=== PATIENT | female | born 1995 | race Caucasian/White ===

== ENCOUNTER 2024-05-02 07:43 | Inpatient (IN) ==
--- NOTE | 2024-05-02 07:56 | History & Physical Report ---
Date of Service May 02, 2024 Assessment & Plan (1) Encounter for induction of labor: (2) Group B streptococcal infection during : Plan 28 y/o at 39 WGA presenting for induction of labor: Cervical Peterson bulb fell out earlier this morning Pitocin Intrapartum PCN AROM as indicated Epidural prn Monitor FHT, category 1 Admission and Anticipated Discharge Date Admission Date: May 02, 2024 History of Present Illness Primary Care Provider: NO PCP 28 y/o female currently at 41WGA with an JIA 04/25/24 as determined by LMP, who is here for IOL: complicated by: COVID POSTIVIE 01/04/24(SX STARTED 01/03/24) GBS Positive * Treat in Labor Had regular appointments with OB + mild contractions + movement denies Fluid loss + Vaginal bleeding External FHT and external uterine monitors used: Category 1 tracing, baseline rate 140, moderate variability, irregular contractions OB Labs: Blood Type O Positive 09/15/23 Antibody Screen NEGATIVE 09/15/23 Hemoglobin 11.8 g/dl (12.0-16.0) L 01/31/24 Hematocrit 34.8 % (37.0-47.0) L 01/31/24 Mean Corpuscular Volume 86.6 fL (80.0-100.0) 09/15/23 Platelet Count 352 K/uL (130-400) 09/15/23 Rubella IgG Antibody Immune (Immune) 09/15/23 Rapid Plasma Reagin Nonreactive (Nonreactive) 09/15/23 Hepatitis B Surface Antigen. NON-REACTIVE (NON-REACTIVE) 09/15/23 Hepatitis C Antibody (EIA) NON-REACTIVE (NON-REACTIVE) 09/15/23 HIV (1&2) Ag and Ab Confirmation NON-REACTIVE (NON-REACTIVE) 09/15/23 Glucose 1 Hour 50 gm Load 111 mg/dl (70-130) 01/31/24 Maternal Serum Alpha Fetoprotein 21.8 ng/mL 11/19/23 OB Optional Labs: Chlamydia trachomatis RNA Not Detected (NotDetected) 09/15/23 Neisseria gonorrhoeae RNA Not Detected (NotDetected) 09/15/23 Alpha Fetoprotein Triple Screen SEE NOTE 11/19/23 Labs Reviewed: Horizon 14-negative--mln cfdna-low risk--mln msafp neg, smp Allergies Allergy/AdvReac Type Severity Reaction Status Date / Time No Known Allergies Allergy Unverified 05/02/24 08:29 Home Medications Medication Instructions Recorded Confirmed Type 21-iron fu-folic acid 1 tab PO DAILY 09/08/23 05/02/24 History [ Complete] pyridoxine (vitamin B6) 1 tab PO DAILY 09/08/23 05/02/24 History doxylamine succinate 25 mg tablet 25 mg PO Q6H PRN Nausea 12/13/23 05/02/24 History (Unisom (doxylamine)) aspirin 81 mg chewable tablet 81 mg PO DAILY 01/13/24 05/02/24 History Benadryl 1 tab PO PM PRN Sleep 05/02/24 05/02/24 History Tylenol 1,000 mg PO Q8 PRN Pain 05/02/24 05/02/24 History Patient History Medical History Varicella vaccination PONV (postoperative nausea and vomiting) Anxiety no current meds, meds in the past Surgical History Hx of eye surgery left eye pterygium removal Hx of wisdom tooth extraction Family History (Updated 09/08/23 @ 08:57 by Maranda Allison) Mother Hypertension Endometriosis Grandmother (Maternal) Endometriosis Denies family history of Ovarian cancer Breast cancer Colorectal cancer Social History Smoking Status: Former smoker Second Hand Exposure: No; Do You Dip or Chew Tobacco: No; Hx Alcohol Use: Yes Hx Substance Use: No Preferred Language: Turkmen Communication Ability: Effective Cash Manager Required: No Beliefs That Will Affect Care: None marital status: marital status details: Shakeel Francis([phone]) [phone] Current Living Situation: Spouse Current Living Situation Comment: Patient lives with spouse, dog, cat-spouse changing litter. current occupational status: employed current occupation: post doc [employer] Feels Safe at Home: Yes Safety Concerns: Feels Safe At This Time OB History G1 RETAIL MARKETING COORDINATOR History last pap 12/26/21 [facility] Review of Systems denies chest pain or SOB denies fever/chills denies ARNETT/changes in vision denies dysuria denies LE pain Physical Exam Physical Exam: General: Alert and oriented. No acute distress Cardiac: Regular rate and rhythm, no murmurs appreciated Respiratory: Lungs clear to auscultation bilaterally, No increased work of breathing Abdominal: Soft, non-tender, non-distended. Bowel sounds present. Gravid uterus. Extremities: No lower extremity edema, calves non-tender bilaterally FHT/Gray: Category 1 tracing, baseline rate 140, moderate variability, irregular contractions : 4/80/-1 per attending exam Supervising Physician Co-Signing Physician Notes Resident Physician Supervision Note: I interviewed and examined the patient. Discussed with Dr. Reyes and agree with findings and plan as documented in the note. Any exceptions or clarifications are listed here: [None] Documented By: Raya Li MD, FACOG Resident Activity Tracking Resident Involvement: Resident Care Provided Care Provided: OB Delivery
[2024-05-02] MEDS ORDERED: LIDOCAINE 1% LOCAL 20 ML VIAL INFIL PRN (08:20)
[2024-05-02] MEDS ORDERED: OXYTOCIN 30 UNITS/NSS 30 UNITS/500 ML BAG IV PRN (08:20)
[2024-05-02 08:56] LABS: Hematocrit (blood only) 36.6 % (37.0-47.0); Hemoglobin 12.3 g/dl (12.0-16.0); Mean Corpuscular Hemoglobin 29.1 pg (25.0-34.0); Mean Corpuscular Hgb Conc 33.6 g/dL (32.0-36.0); Mean Corpuscular Volume 86.5 fL (80.0-100.0); Mean Platelet Volume 9.6 fL (9.4-12.4); Platelet Count 298 K/uL (130-400); RDW Coefficient of Variation 14.1 % (11.5-14.5); Red Blood Count 4.23 M/uL (4.20-5.40); White Blood Count 17.07 K/ul (4.8-10.8)
[2024-05-02] MEDS: ceFAZolin 2000MG 2,000 MG/15 ML SYR IV STA (09:03)
[2024-05-02] MEDS: PENICILLIN GK 6 MU in DEXTROSE 5% 250 ML IV STA (09:18)
[2024-05-02] MEDS: LACTATED RINGER'S 1,000 ML IV PRN (09:18)
[2024-05-02] MEDS: OXYTOCIN 30 UNITS/NSS 30 UNITS/500 ML BAG IV PRN (09:35)
[2024-05-02] MEDS ORDERED: Nursing to Pharmacy Communication SCH (12:00)
[2024-05-02] MEDS: ONDANSETRON INJ 2 MG/ML 2 ML VIAL IV PRN (12:53)
[2024-05-02] MEDS: PENICILLIN GK 3 MU in DEXTROSE 5% 100 ML IV PRN (13:30)
--- NOTE | 2024-05-02 13:54 | Anesthesiology Consultation ---
Date of Service May 02, 2024 Assessment & Plan (1) Encounter for pre-operative examination: Chart Review Chart Review: Acceptable Risk for Labor Epidural History Height/Weight Height: 5 ft 7 in Weight: 102.965 kg Allergies Allergy/AdvReac Type Severity Reaction Status Date / Time No Known Allergies Allergy Unverified 05/02/24 08:29 Medications Home Medications Medication Instructions Recorded Confirmed Last Taken 21-iron fu-folic acid 1 tab PO DAILY 09/08/23 05/02/24 05/01/24 07:30 [ Complete] pyridoxine (vitamin B6) 1 tab PO DAILY 09/08/23 05/02/24 05/01/24 07:30 doxylamine succinate 25 mg tablet 25 mg PO Q6H PRN Nausea 12/13/23 05/02/24 04/30/24 22:30 (Unisom (doxylamine)) aspirin 81 mg chewable tablet 81 mg PO DAILY 01/13/24 05/02/24 04/30/24 22:30 Benadryl 1 tab PO PM PRN Sleep 05/02/24 05/02/24 05/01/24 22:00 Tylenol 1,000 mg PO Q8 PRN Pain 05/02/24 05/02/24 05/02/24 06:00 Active Medications Generic Name Dose Route Start Last Admin Trade Name Freq PRN Reason Stop Dose Admin Oxytocin 30 units in 500 mls @ 14 mls/hr 05/02/24 08:20 05/02/24 13:00 Pitocin 30 Units/Nss IV 05/04/24 08:19 0.84 units/hr .Q24H PRN 14 mls/hr Labor Induction/Augmentation Titration Protocol 0.84 UNITS/HR Lactated Ringer's 1,000 mls @ 125 mls/hr 05/02/24 08:20 05/02/24 09:18 Lr IV 05/04/24 08:19 125 mls/hr .Q8H PRN Administration L&D Protocol Protocol Penicillin G Potassium 3 mu/ 106 mls @ 100 mls/hr 05/02/24 11:39 05/02/24 13:30 Dextrose IV 05/12/24 11:38 100 mls/hr Q4H PRN Administration GBS(+) Until Delivery Ondansetron HCl 4 mg 05/02/24 12:42 05/02/24 12:53 Ondansetron Inj 2 Mg/Ml 2 Ml Vial IV 06/01/24 12:41 4 mg Q6H PRN Administration Nausea And Vomiting Past Medical History Medical History (Updated 05/02/24 @ 13:54 by Alec Carrillo MD) Varicella vaccination Anxiety no current meds, meds in the past Past Family History Family History Mother Hypertension Endometriosis Grandmother (Maternal) Endometriosis Denies family history of Ovarian cancer Breast cancer Colorectal cancer Past Surgical History Surgical History Hx of eye surgery left eye pterygium removal Hx of wisdom tooth extraction Social History Smoking Status: Former smoker Do You Dip or Chew Tobacco: No Hx Alcohol Use: Yes alcohol intake frequency: a few times a month Alcohol Intake Frequency Comment: Patient did not use alcohoh while . Hx Substance Use: No substance use type: does not use Physical Exam Vital Signs Last Vital Signs Temp 36.9 C 05/02/24 12:17 Pulse 75 05/02/24 12:18 Resp 18 05/02/24 12:17 BP 139/87 05/02/24 12:18 Testing Laboratory Results 05/02/24 08:37
[2024-05-02] MEDS: fentaNYL citrate PF 100 MCG/2 ML VIAL ONE (14:20)
[2024-05-02] MEDS ORDERED: NALOXONE HCL 1 MG in SODIUM CHLORIDE 0.9% 1,000 ML IV PRN (14:27)
[2024-05-02] MEDS ORDERED: fentaNYL citrate PF 100 MCG/2 ML VIAL EPI PRN (14:27)
[2024-05-02] MEDS ORDERED: SODIUM CHLORIDE 0.9% PF INJ 10 ML VIAL EPI PRN (14:27)
[2024-05-02] MEDS ORDERED: BUPIVACAINE 0.25% PF 30 ML VIAL EPI PRN (14:27)
[2024-05-02] MEDS ORDERED: LIDOCAINE 2% MPF LOCAL 5 ML VIAL EPI PRN (14:27)
[2024-05-02] MEDS ORDERED: ePHEDrine sulfate 50 MG/ML AMP IV PRN (14:27)
[2024-05-02] MEDS ORDERED: ROPIVACAINE 0.5% PF 5 MG/ML 20 ML VIAL EPI PRN (14:27)
[2024-05-02] MEDS ORDERED: NALOXONE HCL 0.4 MG/1 ML VIAL/CARP IV PRN (14:27)
[2024-05-02] MEDS ORDERED: ONDANSETRON INJ 2 MG/ML 2 ML VIAL IV PRN (14:27)
[2024-05-02] MEDS: LIDOCAINE 2%/EPINEPHRINE 1:200,000 20 ML PF ONE (14:28)
[2024-05-02] MEDS: BUPIVACAINE 0.25% PF 30 ML VIAL ONE (14:28)
[2024-05-02] MEDS: fentANYL 2 MCG/ML BUPIVacaine 0.125%-NSS 100ML BAG ONE (14:30)
[2024-05-02] MEDS: BUPIVACAINE 0.25% PF 30 ML VIAL EPI STA (14:43)
[2024-05-02] MEDS: SODIUM CHLORIDE 0.9% PF INJ 10 ML VIAL ONE (14:43)
[2024-05-02] MEDS: SODIUM CHLORIDE 0.9% PF INJ 10 ML VIAL EPI STA (14:44)
[2024-05-02] MEDS: LIDOCAINE 2%/EPINEPHRINE 1:200,000 20 ML PF EPI STA (14:44)
[2024-05-02] MEDS: fentaNYL citrate PF 100 MCG/2 ML VIAL EPI STA (14:44)
[2024-05-02] MEDS ORDERED: ceFAZolin 1000MG 1,000 MG/7.5 ML SYR IV PRN (15:25)
[2024-05-02] MEDS: diphenhydrAMINE 50 MG/ML VIAL IV STA (17:52)
[2024-05-02] MEDS: ACETAMINOPHEN 500 MG TAB PO PRN (20:12)
[2024-05-02] MEDS: fentANYL 2 MCG/ML BUPIVacaine 0.125%-NSS 100ML BAG EPI PRN (22:02)
[2024-05-03] MEDS: CALCIUM CARBONATE 500 MG CHEWABLE TAB PO PRN (01:00)
--- NOTE | 2024-05-03 03:04 | Labor Progress Brief Note ---
Date of Service May 03, 2024 Subjective having deep variables with contractions- pitocin has been stopped for the third time with good recovery of heart tracing. cervix exam still 9 cm with edematous lip anteriorly feels asynclitic will give another dose of IV benadryl and restart pit- if intolerance occurs again- will proceed with section Assessment & Plan Admission and Anticipated Discharge Date Admission Date: May 02, 2024 Physical Exam Constitutional: WD/WN, vitals as above Psychiatric: A+Ox3, euthymic affect Genitourinary: Manual OB Exam: + cervical dilation 9 cm, + cervical effacement (thick) and + station 0 Results & Data Vital Signs (Past 12 Hours) Vital Signs Temp Pulse Resp BP Pulse Ox 05/03/24 02:57 82 99 05/03/24 02:52 80 99 05/03/24 02:47 69 99 05/03/24 02:44 67 118/66 05/03/24 02:42 66 98 05/03/24 02:37 67 99 05/03/24 02:32 64 99 05/03/24 02:29 60 115/55 L 05/03/24 02:27 63 99 05/03/24 02:22 63 99 05/03/24 02:17 73 99 05/03/24 02:14 65 116/63 05/03/24 02:12 71 96 05/03/24 02:07 76 97 05/03/24 02:02 77 97 05/03/24 01:57 66 95 05/03/24 01:52 62 95 05/03/24 01:47 76 96 05/03/24 01:45 68 124/65 05/03/24 01:42 68 96 05/03/24 01:37 69 97 05/03/24 01:32 78 97 05/03/24 01:30 18 05/03/24 01:30 18 05/03/24 01:28 102 H 94 05/03/24 01:27 95 H 97 05/03/24 01:22 67 96 05/03/24 01:17 68 96 05/03/24 01:13 76 136/75 05/03/24 01:12 75 96 05/03/24 01:07 70 96 05/03/24 01:02 85 97 05/03/24 01:00 18 05/03/24 01:00 18 06/26/24 00:59 71 135/73 05/03/24 00:57 66 96 05/03/24 00:52 78 96 05/03/24 00:47 76 96 05/03/24 00:42 78 97 05/03/24 00:37 72 97 05/03/24 00:32 77 96 05/03/24 00:30 18 05/03/24 00:30 100.0 F H 18 05/03/24 00:27 83 97 05/03/24 00:22 70 95 05/03/24 00:21 73 94 05/03/24 00:17 70 95 05/03/24 00:16 72 94 05/03/24 00:14 72 103/55 L 05/03/24 00:12 74 94 05/03/24 00:10 72 94 05/03/24 00:07 72 94 05/03/24 00:05 73 94 05/03/24 00:02 81 96 05/03/24 00:00 18 05/03/24 00:00 18 05/02/24 23:59 75 05/02/24 23:59 122/72 05/02/24 23:57 96 05/02/24 23:57 69 05/02/24 23:52 96 05/02/24 23:52 69 05/02/24 23:50 94 05/02/24 23:50 73 05/02/24 23:47 95 05/02/24 23:47 72 05/02/24 23:44 69 05/02/24 23:44 120/57 L 05/02/24 23:42 96 05/02/24 23:42 66 05/02/24 23:37 97 05/02/24 23:37 68 05/02/24 23:32 96 05/02/24 23:32 75 05/02/24 23:30 18 05/02/24 23:30 18 05/02/24 23:29 74 05/02/24 23:29 133/69 05/02/24 23:27 97 05/02/24 23:27 74 05/02/24 23:22 96 05/02/24 23:22 96 H 05/02/24 23:17 96 05/02/24 23:17 77 05/02/24 23:13 82 05/02/24 23:13 121/67 05/02/24 23:12 97 05/02/24 23:12 81 05/02/24 23:07 96 05/02/24 23:07 81 05/02/24 23:02 96 05/02/24 23:02 76 05/02/24 23:00 18 05/02/24 23:00 18 05/02/24 22:57 96 05/02/24 22:57 77 05/02/24 22:52 97 05/02/24 22:52 83 05/02/24 22:47 97 05/02/24 22:47 88 05/02/24 22:42 97 05/02/24 22:42 85 05/02/24 22:39 94 05/02/24 22:39 87 05/02/24 22:37 96 05/02/24 22:37 85 05/02/24 22:32 95 05/02/24 22:32 70 05/02/24 22:30 18 05/02/24 22:30 18 05/02/24 22:28 71 05/02/24 22:28 117/56 L 05/02/24 22:27 96 05/02/24 22:27 71 05/02/24 22:23 93 05/02/24 22:23 81 05/02/24 22:22 96 05/02/24 22:22 78 05/02/24 22:17 97 05/02/24 22:17 78 05/02/24 22:14 75 05/02/24 22:14 116/56 L 05/02/24 22:12 97 05/02/24 22:12 81 05/02/24 22:07 97 05/02/24 22:07 74 05/02/24 22:02 97 05/02/24 22:02 79 05/02/24 22:00 18 05/02/24 22:00 18 05/02/24 21:59 81 05/02/24 21:59 132/56 L 05/02/24 21:57 18 05/02/24 21:57 100.0 F H 18 05/02/24 21:57 97 05/02/24 21:57 83 05/02/24 21:52 97 05/02/24 21:52 101 H 05/02/24 21:47 97 05/02/24 21:47 77 05/02/24 21:44 75 05/02/24 21:44 149/79 H 05/02/24 21:42 96 05/02/24 21:42 78 05/02/24 21:37 96 05/02/24 21:37 87 05/02/24 21:32 97 05/02/24 21:32 89 05/02/24 21:30 18 05/02/24 21:30 18 05/02/24 21:28 79 05/02/24 21:28 135/80 05/02/24 21:27 96 05/02/24 21:27 77 05/02/24 21:22 97 05/02/24 21:22 79 05/02/24 21:21 92 05/02/24 21:21 103 H 05/02/24 21:17 97 05/02/24 21:17 83 05/02/24 21:14 77 05/02/24 21:14 138/75 05/02/24 21:12 96 05/02/24 21:12 83 05/02/24 21:07 96 05/02/24 21:07 86 05/02/24 21:05 99.0 F 05/02/24 21:02 97 05/02/24 21:02 79 05/02/24 21:00 18 05/02/24 21:00 18 05/02/24 20:58 82 05/02/24 20:58 119/56 L 05/02/24 20:57 97 05/02/24 20:57 82 05/02/24 20:52 96 05/02/24 20:52 79 05/02/24 20:47 97 05/02/24 20:47 77 05/02/24 20:44 75 05/02/24 20:44 113/59 L 05/02/24 20:42 98 05/02/24 20:42 79 05/02/24 20:37 97 05/02/24 20:37 77 05/02/24 20:32 99 05/02/24 20:32 84 05/02/24 20:30 18 05/02/24 20:30 18 05/02/24 20:29 76 05/02/24 20:29 110/56 L 05/02/24 20:27 97 05/02/24 20:27 76 05/02/24 20:22 98 05/02/24 20:22 71 05/02/24 20:17 97 05/02/24 20:17 72 05/02/24 20:12 97 05/02/24 20:12 86 05/02/24 20:07 97 05/02/24 20:07 75 05/02/24 20:03 92 05/02/24 20:03 87 05/02/24 20:02 99 05/02/24 20:02 82 05/02/24 20:00 18 05/02/24 20:00 18 05/02/24 19:57 97 05/02/24 19:57 77 05/02/24 19:52 97 05/02/24 19:52 76 05/02/24 19:47 98 05/02/24 19:47 85 05/02/24 19:42 98 05/02/24 19:42 81 05/02/24 19:37 99 05/02/24 19:37 99 H 05/02/24 19:34 79 05/02/24 19:34 101/71 05/02/24 19:32 97 05/02/24 19:32 81 05/02/24 19:30 18 05/02/24 19:30 18 05/02/24 19:30 18 05/02/24 19:30 100.4 F H 18 05/02/24 19:27 99 05/02/24 19:27 87 05/02/24 19:22 99 05/02/24 19:22 88 05/02/24 19:18 89 L 05/02/24 19:18 80 05/02/24 19:17 98 05/02/24 19:17 74 05/02/24 19:13 77 05/02/24 19:13 114/71 05/02/24 19:12 97 05/02/24 19:12 78 05/02/24 19:07 98 05/02/24 19:07 84 05/02/24 19:02 98 05/02/24 19:02 71 05/02/24 18:58 81 05/02/24 18:58 116/74 05/02/24 18:57 97 05/02/24 18:57 74 05/02/24 18:54 93 05/02/24 18:54 81 05/02/24 18:52 98 05/02/24 18:52 73 05/02/24 18:49 93 05/02/24 18:49 103 H 05/02/24 18:47 96 05/02/24 18:47 98 H 05/02/24 18:44 78 05/02/24 18:44 115/72 05/02/24 18:42 98 05/02/24 18:42 91 H 05/02/24 18:39 92 05/02/24 18:39 99 H 05/02/24 18:37 97 05/02/24 18:37 81 05/02/24 18:32 96 05/02/24 18:32 69 05/02/24 18:29 70 05/02/24 18:29 114/68 05/02/24 18:27 96 05/02/24 18:27 71 05/02/24 18:22 96 05/02/24 18:22 72 05/02/24 18:17 97 05/02/24 18:17 73 05/02/24 18:14 72 05/02/24 18:14 121/73 05/02/24 18:12 95 05/02/24 18:12 77 05/02/24 18:07 95 05/02/24 18:07 77 05/02/24 18:02 95 05/02/24 18:02 75 05/02/24 17:59 83 05/02/24 17:59 135/75 05/02/24 17:57 96 05/02/24 17:57 79 05/02/24 17:52 96 05/02/24 17:52 73 05/02/24 17:47 96 05/02/24 17:47 72 05/02/24 17:43 80 05/02/24 17:43 123/78 05/02/24 17:42 95 05/02/24 17:42 89 05/02/24 17:37 96 05/02/24 17:37 72 05/02/24 17:32 96 05/02/24 17:32 87 05/02/24 17:30 86 05/02/24 17:30 122/70 05/02/24 17:27 96 05/02/24 17:27 84 05/02/24 17:22 96 05/02/24 17:22 77 05/02/24 17:17 97 05/02/24 17:17 85 05/02/24 17:13 70 05/02/24 17:13 129/70 05/02/24 17:12 95 05/02/24 17:12 72 05/02/24 17:07 95 05/02/24 17:07 74 05/02/24 17:02 95 05/02/24 17:02 76 05/02/24 16:58 73 05/02/24 16:58 119/63 05/02/24 16:57 96 05/02/24 16:57 76 05/02/24 16:52 95 05/02/24 16:52 77 05/02/24 16:47 97 05/02/24 16:47 86 05/02/24 16:44 71 05/02/24 16:44 114/57 L 05/02/24 16:42 96 05/02/24 16:42 77 05/02/24 16:37 96 05/02/24 16:37 79 05/02/24 16:32 96 05/02/24 16:32 70 05/02/24 16:29 65 05/02/24 16:29 113/61 05/02/24 16:27 95 05/02/24 16:27 71 05/02/24 16:22 96 05/02/24 16:22 75 05/02/24 16:17 97 05/02/24 16:17 71 05/02/24 16:13 70 05/02/24 16:13 113/62 05/02/24 16:12 97 05/02/24 16:12 67 05/02/24 16:07 97 05/02/24 16:07 77 05/02/24 16:02 98 05/02/24 16:02 78 05/02/24 15:59 73 05/02/24 15:59 115/60 05/02/24 15:57 98 05/02/24 15:57 74 05/02/24 15:53 93 05/02/24 15:53 105 H 05/02/24 15:52 96 05/02/24 15:52 70 05/02/24 15:47 96 05/02/24 15:47 73 05/02/24 15:43 86 05/02/24 15:43 118/73 05/02/24 15:42 96 05/02/24 15:42 77 05/02/24 15:37 98 05/02/24 15:37 80 05/02/24 15:32 98 05/02/24 15:32 84 05/02/24 15:28 68 05/02/24 15:28 116/72 05/02/24 15:27 99 05/02/24 15:27 69 05/02/24 15:22 99 05/02/24 15:22 72 05/02/24 15:17 100 05/02/24 15:17 81 05/02/24 15:14 92 H 05/02/24 15:14 133/72 05/02/24 15:12 100 05/02/24 15:12 95 H 05/02/24 15:09 78 05/02/24 15:09 126/75 05/02/24 15:07 98 05/02/24 15:07 81 05/02/24 15:02 98 05/02/24 15:02 87 Coding Level of Care Code None
[2024-05-03] MEDS: diphenhydrAMINE 50 MG/ML VIAL IV STA (03:12)
[2024-05-03] MEDS: ePHEDrine sulfate 50 MG/ML AMP ONE (06:35)
--- NOTE | 2024-05-03 08:48 | Delivery Summary ---
Vaginal Delivery Summary Date of Service May 03, 2024 Vaginal Delivery Summary and 1st Degree LAC Vaginal Delivery Summary: Pre-delivery diagnoses: 28yo @ 41 1/7, postdates induction of labor Post-delivery diagnoses: same Procedure: spontaneous vaginal delivery Surgeon: Marley Lay DO Complications: none Findings: Viable male . Apgars: 8/9. Weight pending, please see nursery records Estimated QBL: 223 Description of delivery: The patient progressed to complete with epidural anesthesia. She then began to push. She spontaneously vaginally delivered a viable from the cephalic presentation. The head delivered in SYDNI position. The anterior shoulder delivered, followed by the posterior shoulder, followed by the body. Nuchal x 2, unable to safely reduce - delivered through. 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 A segment was retained for cord gases. Cord blood was obtained. The placenta was delivered spontaneously intact with a 3-vessel cord. The uterus and vagina were swept of clots and debris. IV pitocin was given. The uterus became firm. The cervix, vagina, and perineum were inspected and a first degree perineal laceration was noted and repaired with 3-0 Vicryl. Excellent hemostasis was observed. The mother and baby are recovering in stable and good condition in the room. Sponge, needle and instrument counts were correct x 2. Marley Lay DO [facility] Vaginal Delivery Charge Vaginal Delivery Codes: 99531 global code for the antepartum, delivery, and post- Delivery Type Details: and 1st Degree LAC
--- NOTE | 2024-05-03 09:00 | Anesthesia Procedure Note ---
Date of Service May 03, 2024 Anesthesia Post Epidural Note Vital Signs Vital Signs: Temp Pulse Resp BP Pulse Ox 36.9 C 80 18 121/55 L 89 L 05/03/24 07:10 05/03/24 08:44 05/03/24 07:10 05/03/24 08:44 05/03/24 08:34 Pain Intensity Abdomen: Pain Intensity: 0 Notes Mental Status: alert / awake / arousable Nausea / Vomiting: adequately controlled Pain: adequately controlled Airway Patency, RR, SpO2: stable & adequate BP & HR: stable & adequate Hydration State: stable & adequate Neuraxial Anesthesia: was administered and sensory block is resolving Anesthetic Complications: no major complications apparent and Pt Satisfied with anesthetic care Epidural: Removed without complications and With tip intact
[2024-05-03] MEDS ORDERED: HYDROCORTISONE ACETATE 25 MG SUPP PR PRN (09:02)
[2024-05-03] MEDS ORDERED: ACETAMINOPHEN 325 MG TAB PO PRN (09:02)
[2024-05-03] MEDS ORDERED: bisacodyL 10 MG SUPP PR PRN (09:02)
[2024-05-03] MEDS ORDERED: oxyCODONE/ACETAMINOPHEN 5mg/325mg TAB PO PRN (09:02)
[2024-05-03] MEDS ORDERED: OXYTOCIN 30 UNITS/NSS 30 UNITS/500 ML BAG IV PRN (09:02)
[2024-05-03 09:16] LABS: Base Excess Cord Arterial Bld -9.8 mEq/L (-9-1.8); CO2 Cord Arterial Blood 58 mmHg (39.1-73.5); HCO3 Cord Arterial Blood 20 mmol/L (19.7-28.5); Oxygen Sat Cord Arterial Blood < 60.0 % (<60); PO2 Cord Arterial Blood < 20 mmHg (4.1-31.7); pH Cord Arterial Blood 7.14 (7.1-7.38)
[2024-05-03 09:17] LABS: Base Excess Cord Venous Blood -9.2 mEq/L (-7.7-1.9); Cord Venous Blood HCO3 18 mmol/L (18.4-26.8); Cord Venous Blood PCO2 40 mmHg (30.4-57.2); Cord Venous Blood PO2 26 mmHg (14.1-43.3); Cord Venous Blood pH 7.25 (7.20-7.44); O2 Saturation Cord Venous Bld < 60.0 % (<68)
[2024-05-03] MEDS: IBUPROFEN 600 MG TAB PO PRN (09:52)
[2024-05-03] MEDS: BENZOCAINE 20% SPRY 85 APPLN/85 GM CAN EXT PRN (09:52)
[2024-05-03] MEDS: DIPHTHER/TETAN/PERTUS Vaccine (Tdap, Adol/Adult) 0.5mL IM ONE (15:48)
[2024-05-03] MEDS: DOCUSATE SODIUM 100 MG CAP PO SCH (20:16)
--- NOTE | 2024-05-04 06:17 | Obstetrical Progress Note ---
Date of Service <Ralph Reyes DO - Last Filed: 05/04/24 06:19> May 04, 2024 Assessment & Plan <Ralph Reyes DO - Last Filed: 05/04/24 06:19> (1) Encounter for assessment: Plan 28 y/o PPD#1: Eating well, voiding well, ambulating well Vitals reviewed, WNL Pain well controlled with Motrin Routine post care - OOB, ambulation, diet progression as tolerated Will have 6 week follow up with Dr. Lay <Marley Lay, DO - Last Filed: 05/04/24 08:46> (1) Encounter for assessment: Subjective <Ralph Reyes - Last Filed: 05/04/24 06:19> Ambulation: ambulating normally Voiding: no voiding problems Diet Tolerance:: regular diet Lochia:: Moderate Feeding Type:: breast feeding pain well controlled with Motrin Review of Systems -Denies fever or chills -Denies dyspnea, chest pain, or palpitations -Denies dysuria -Denies headache or changes in vision Physical Exam <Ralph Reyes DO - Last Filed: 05/04/24 06:19> General: Alert and oriented. No acute distress Cardiac: Regular rate and rhythm, no murmurs appreciated Respiratory: Lungs clear to auscultation bilaterally, No increased work of breathing Abdominal: Soft, non-tender, non-distended. Bowel sounds present. Uterus: Uterine fundus firm, palpable below umbilicus Extremities: No lower extremity edema, calves non-tender bilaterally Results & Data <Ralph Reyes, - Last Filed: 05/04/24 06:19> Vital Signs (Past 12 Hours) Vital Signs Temp Pulse Resp BP 05/04/24 03:25 36.4 C L 74 18 108/65 05/04/24 00:15 36.4 C L 74 16 114/61 05/03/24 19:30 36.6 C 80 16 112/70 Supervising Physician <Marley Lay, DO - Last Filed: 05/04/24 08:46> Co-Signing Physician Notes Resident Physician Supervision Note: I was present with Dr. Reyes during the history and exam. I discussed the case with the resident and agree with the findings and plan as documented in the note. Any exceptions or clarifications are listed here: PPD1 doing well, continue routine care. Anticipate DC home tomorrow. Documented By: Marley Lay DO Resident Activity Tracking <Ralph Reyes DO - Last Filed: 05/04/24 06:19> Resident Involvement: Resident Care Provided Care Provided: OB Delivery
[2024-05-04 06:39] LABS: Hematocrit (blood only) 30.6 % (37.0-47.0); Hemoglobin 10.2 g/dl (12.0-16.0)
[2024-05-04] MEDS: PRENATAL VITAMIN 1 TAB PO SCH (08:39)
[2024-05-04] MEDS: bisacodyL 5 MG TABEC PO SCH (21:05)
--- NOTE | 2024-05-05 07:01 | Obstetrical Progress Note ---
Date of Service <Ralph Reyes DO - Last Filed: 05/05/24 07:51> May 05, 2024 Assessment & Plan <Ralph Reyes DO - Last Filed: 05/05/24 07:51> (1) Encounter for assessment: Plan 28 y/o PPD#2: Eating well, voiding well, ambulating well Vitals reviewed, WNL Pain well controlled with Motrin Routine post care - OOB, ambulation, diet progression as tolerated Recommend 2 week follow up in office to discuss mood/anxiety Will have 6 week follow up with Dr. Lay <Livia Royal MD, FACOG - Last Filed: 05/05/24 07:59> (1) Encounter for assessment: Subjective <Ralph Reyes DO - Last Filed: 05/05/24 07:51> Ambulation: ambulating normally Voiding: no voiding problems Diet Tolerance:: regular diet Lochia:: Moderate Feeding Type:: breast feeding pain well controlled with Motrin patient notes significant feeling of anxiety, does have a history of anxiety and sees a therapist. Denies SI/HI/AVH. Review of Systems -Denies fever or chills -Denies dyspnea, chest pain, or palpitations currently -Denies dysuria -Denies headache or changes in vision Physical Exam <Ralph Reyes DO - Last Filed: 05/05/24 07:51> General: Alert and oriented. No acute distress Cardiac: Regular rate and rhythm, no murmurs appreciated Respiratory: Lungs clear to auscultation bilaterally, No increased work of breathing Abdominal: Soft, non-tender, non-distended. Bowel sounds present. Uterus: Uterine fundus firm, palpable below umbilicus Extremities: No lower extremity edema, calves non-tender bilaterally Results & Data <Ralph Reyes DO - Last Filed: 05/05/24 07:51> Vital Signs (Past 12 Hours) Vital Signs Temp Pulse Resp BP O2 Del Method 05/04/24 23:26 36.6 C 71 16 128/85 Room Air 05/04/24 20:00 36.3 C L 72 14 115/70 Room Air Supervising Physician <Livia Royal MD, FACOG - Last Filed: 05/05/24 07:59> Co-Signing Physician Notes Resident Physician Supervision Note: I was present with Dr. Reyes during the history and exam. I discussed the case with the resident and agree with the findings and plan as documented in the note. Any exceptions or clarifications are listed here: stable, eating, voiding, ambulating. admits to alot of anxiety yesterday and thinks she is improved from then. nursing staff discussed concerns about her anxiety with us and i shared that with patient. she has therapist and contracts for safety. no hi or si. Not on meds. Advised 2wk mood visit in ob office and will make sure ob nurse has pt schedule. will dc home. abd soft ff 2 down nt, nt calves. ppd#2 breast/rhpos/ri. instructions reviewed. Documented By: Livia Royal MD, FACOG Resident Activity Tracking <Ralph Reyes DO - Last Filed: 05/05/24 07:51> Resident Involvement: Resident Care Provided Care Provided: OB Delivery
== END 2024-05-05 10:50 | disposition home or self-care (01) | DRG 807 ==
LOC: 4S1 07:43 → 4E2 05-03 11:13